=== PATIENT | female | born 1970 | race Caucasian/White ===

== ENCOUNTER 2018-08-21 05:34 | Emergency (ER) | payer OTHER, SELFPAY ==
[2018-08-21 05:40] VITALS: BP 164/93; PULSE 68; RESP 14; TEMP 36.4; O2SAT 98
[2018-08-21] MEDS: MECLIZINE HCL 12.5 MG TABLET 25 MG PO (05:55)
[2018-08-21] MEDS: ONDANSETRON 4 MG/2 ML INJ IV (05:56)
[2018-08-21] MEDS: SODIUM CHLORIDE 0.9% 1,000 ML 1000 ML IV ×2 (05:56→07:15)
--- NOTE | 2018-08-21 06:03 | ED_ITS ---
HPI - Dizziness <Charbel Burton DO - Last Filed: 08/26/18 21:18> General Chief Complaint: Dizziness Stated Complaint: Dizzy, nausea, sweating Time Seen by Provider: 08/21/18 05:38 Source: patient and family Mode of arrival: ambulatory Limitations: no limitations History of Present Illness HPI Narrative: 48-year-old female nonsmoker with history of hypertension presents with a chief complaint of dizziness, weakness, chills and vomiting this morning. She went to bed feeling a bit queasy and woke up this morning vomiting and sweaty and now feels dizzy. She is more dizzy upon standing and looking of. She has improvement with sitting still. She denies recent trauma or head injury. She denies any recent upper respiratory complaints such as runny nose, sneezing, coughing or sore throat. She denies any chest pain or shortness of breath. She denies any abdominal pain. She denies blurred vision, trouble with speech or other focal neurologic problems. She is visiting locally with her and daughter, they are camping at a local camp area. She thinks she might have eaten some bad food last night. MD complaint: dizziness Onset (ago): hour(s) Timing: awoke with symptoms Description: room spinning History of similar episodes: No History of trauma: No Severity: moderate Relieving factors: remaining still Exacerbating factors: movement Related Data Previous Rx's Medication Instructions Recorded meclizine 25 mg PO TID PRN #14 tab 08/21/18 ondansetron 4 mg PO Q6-8H PRN #10 tab 08/21/18 Allergies Allergy/AdvReac Type Severity Reaction Status Date / Time No Known Drug Allergies Allergy Verified 08/21/18 05:41 Review of Systems <Charbel Burton DO - Last Filed: 08/26/18 21:18> Constitutional Reports chills, Denies fever(s), Denies lethargy and Reports weakness Eyes Denies change in vision, Denies eye discharge, Denies irritation and Denies loss of vision ENT Ears, Nose, Mouth, and Throat: Denies change in voice, Denies neck pain and D enies sore throat Cardiovascular Denies chest pain, Denies irregular heart rhythm, Denies lightheadedness, Denies palpitations, Denies dyspnea, Denies dyspnea on exertion and Denies orthopnea Respiratory Denies cough, Denies dyspnea, Denies dyspnea on exertion and Denies wheezing Gastrointestinal Gastrointestinal: Denies abdominal pain, Denies change in bowel habits, Denies diarrhea, Reports nausea and Reports vomiting Genitourinary Denies hematuria, Denies flank pain, Denies urinary incontinence and Denies urinary urgency Musculoskeletal Denies neck pain Integumentary/Breasts Denies pruritus, Denies erythema, Denies rash and Denies wounds Neurologic Denies confusion, Denies loss of vision and Reports weakness Psychiatric Denies anxiety, Denies confusion, Denies depression, Denies homicidal ideation and Denies suicidal ideation Endocrine Denies palpitations Hematologic/Lymphatic Denies easy bruising Allergic/Immunologic Denies wheezing PFSH <Charbel Burton DO - Last Filed: 08/26/18 21:18> Medical History (Updated 08/21/18 @ 08:09 by Rukhsana Lancaster DO) HTN (hypertension) (Acute) Social History Smoking Status: Never smoker Social History Smoking Status: Never smoker Exam <Charbel Burton DO - Last Filed: 08/26/18 21:18> Narrative Exam Narrative: GENERAL: 48-year-old female appears stated age, obviously uncomfortable, sitting very still and any movement of her head causes dizziness HEAD: Atraumatic. Normocephalic. No temporal or scalp tenderness. EYES: Pupils equal round and reactive. Extraocular motions intact. No scleral icterus. No injection or drainage. ENT: Nose without bleeding, purulent drainage or septal hematoma. Throat without erythema, tonsillar hypertrophy or exudate. Uvula midline. Airway patent. NECK: Trachea midline. No JVD or lymphadenopathy. Supple, nontender, no meningeal signs. CARDIOVASCULAR: Regular rate and rhythm without murmurs, gallops, or rubs. RESPIRATORY: Clear to auscultation. Breath sounds equal bilaterally. No wheezes, rales, or rhonchi. GASTROINTESTINAL: Abdomen soft, non-tender, nondistended. No hepato- splenomegaly, or palpable masses. No guarding. EXTREMITIES: No clubbing, cyanosis, or edema. No joint tenderness, effusion, or edema noted. BACK: Nontender without deformity or crepitance. No flank tenderness. NEURO: AOx3. SKIN: No rash or erythema. Initial Vital Signs Initial Vital Signs: Vital Signs Temperature 97.6 F 08/21/18 05:40 Pulse Rate 68 08/21/18 05:40 Respiratory Rate 14 08/21/18 05:40 Blood Pressure 164/93 H 08/21/18 05:40 Pulse Oximetry 98 08/21/18 05:40 <Rukhsana Lancaster DO - Last Filed: 08/21/18 08:48> Initial Vital Signs Initial Vital Signs: Vital Signs Temperature 97.6 F 08/21/18 05:40 Pulse Rate 68 08/21/18 05:40 Respiratory Rate 14 08/21/18 05:40 Blood Pressure 164/93 H 08/21/18 05:40 Pulse Oximetry 98 08/21/18 05:40 Course <Charbel Burton DO - Last Filed: 08/26/18 21:18> Orders Ordered: Discontinued Medications Sodium Chloride (Normal Saline 0.9%) 1,000 mls @ 1,000 mls/hr IV BOLUS ONE Stop: 08/21/18 06:48 Last Infusion: 08/21/18 07:13 Dose: 1,000 mls/hr Admin: 08/21/18 05:56 Dose: 1,000 mls/hr Sodium Chloride (Normal Saline 0.9%) 1,000 mls @ 1,000 mls/hr IV BOLUS ONE Stop: 08/21/18 07:54 Last Infusion: 08/21/18 08:08 Dose: 0 mls/hr Admin: 08/21/18 07:15 Dose: 1,000 mls/hr Meclizine HCl (Antivert) 25 mg PO NOW ONE Stop: 08/21/18 05:50 Last Admin: 08/21/18 05:55 Dose: 25 mg Ondansetron HCl (Zofran) 4 mg IV Q4HR PRN PRN Reason: Nausea And Vomiting Last Admin: 08/21/18 05:56 Dose: 4 mg Vital Signs - 8 hr 08/21/18 05:40 08/21/18 06:14 08/21/18 08:31 Temperature 97.6 F Pulse Rate 68 70 84 Respiratory Rate 14 15 14 Blood Pressure 164/93 H Blood Pressure [Right Arm] 141/83 H 144/80 H Pulse Oximetry 98 99 100 07/06/19 08:42 Temperature Pulse Rate 77 Respiratory Rate 18 Blood Pressure 138/80 Blood Pressure [Right Arm] Pulse Oximetry 100 <Rukhsana Lancaster DO - Last Filed: 08/21/18 08:48> Orders Ordered: Discontinued Medications Sodium Chloride (Normal Saline 0.9%) 1,000 mls @ 1,000 mls/hr IV BOLUS ONE Stop: 08/21/18 06:48 Last Infusion: 08/21/18 07:13 Dose: 1,000 mls/hr Admin: 08/21/18 05:56 Dose: 1,000 mls/hr Sodium Chloride (Normal Saline 0.9%) 1,000 mls @ 1,000 mls/hr IV BOLUS ONE Stop: 08/21/18 07:54 Last Infusion: 08/21/18 08:08 Dose: 0 mls/hr Admin: 08/21/18 07:15 Dose: 1,000 mls/hr Meclizine HCl (Antivert) 25 mg PO NOW ONE Stop: 08/21/18 05:50 Last Admin: 08/21/18 05:55 Dose: 25 mg Ondansetron HCl (Zofran) 4 mg IV Q4HR PRN PRN Reason: Nausea And Vomiting Last Admin: 08/21/18 05:56 Dose: 4 mg Vital Signs - 8 hr 08/21/18 05:40 08/21/18 06:14 08/21/18 08:31 Temperature 97.6 F Pulse Rate 68 70 84 Respiratory Rate 14 15 14 Blood Pressure 164/93 H Blood Pressure [Right Arm] 141/83 H 144/80 H Pulse Oximetry 98 99 100 08/21/18 08:42 Temperature Pulse Rate 77 Respiratory Rate 18 Blood Pressure 138/80 Blood Pressure [Right Arm] Pulse Oximetry 100 MDM - Dizziness <Charbel Burton DO - Last Filed: 08/26/18 21:18> Lab Data Result diagrams: 08/21/18 06:09 08/21/18 06:09 Lab Results 08/21/18 08/21/18 08/21/18 Range/Units 04:45 06:09 06:09 WBC 10.0 (4.5-11.0) X10^3/uL RBC 5.02 (4.0-5.2) X10^6/uL Hgb 13.7 (12.0-16.0) g/dL Hct 41.3 (36-46) % MCV 82.2 (80-100) fL MCH 27.2 (26-34) PG MCHC 33.1 (30-36) % RDW 13.5 (11.6-14.8) % Plt Count 381 (150-400) X10^3/uL Neut % (Auto) 76.3 H (50-75) % Lymph % (Auto) 17.4 L (25-40) % [place] % (Auto) 4.2 (3-14) % Eos % (Auto) 0.9 L (2-4) % Baso % (Auto) 1.2 (0-2) % Neut # (Auto) 7700 H (9926-4740) /uL Lymph # (Auto) 1800 (3515-7882) /uL [place] # (Auto) 400 (0-900) /uL Eos # (Auto) 100 (0-450) /uL Baso # (Auto) 100 (0-100) /uL Sodium 138 (137-145) mmol/L Potassium 4.2 (3.4-5.1) mmol/L Chloride 105 (98-107) mmol/L Carbon Dioxide 25 (22-32) mmol/L BUN 20 H (7-17) mg/dL Creatinine 0.60 (0.52-1.04) mg/dL Estimated GFR > 60.0 (>60) mL/min BUN/Creatinine Ratio 33.3 H (6-22) Glucose 111 H (70-100) mg/dL Calcium 8.9 (8.4-10.2) mg/dL Troponin I < 0.012 (0.01-0.034) ng/mL Urine RBC 1-5/hpf (0-5/HPF) Urine WBC None seen (0-5/HPF) Ur Squamous Epith Cells 1-5 /hpf (0-5/HPF) Urine Bacteria Few (2-10) H (None) Ur Culture Indicated? Cult not indicated Urine Dip Bedside Urine Glucose Negative Bedside Urine Bilirubin - Negative Bedside Urine Ketone - Negative Urine Specific Abbott 1.030 Bedside Urine Occult Blood ++ Bedside Urine pH 5.5 Bedside Urine Protein - Negative Bedside Urine Urobilinogen +/- 1mg Bedside Urine Nitrite - Negative Bedside Urine Leukocytes - Negative Esterase ECG Data Attestation: I personally reviewed and interpreted this ECG as follows: Prior ECG tracings: not available for review Interpretation: EKG is normal sinus rhythm rate [78] and free of any signs of ischemia or ectopy. No ST segmental elevation or depression. No T wave inversions <Rukhsana Lancaster DO - Last Filed: 08/21/18 08:48> Lab Data Attestation: I reviewed the patient's lab results. Lab Results 08/21/18 08/21/18 08/21/18 Range/Units 04:45 06:09 06:09 WBC 10.0 (4.5-11.0) X10^3/uL RBC 5.02 (4.0-5.2) X10^6/uL Hgb 13.7 (12.0-16.0) g/dL Hct 41.3 (36-46) % MCV 82.2 (80-100) fL MCH 27.2 (26-34) PG MCHC 33.1 (30-36) % RDW 13.5 (11.6-14.8) % Plt Count 381 (150-400) X10^3/uL Neut % (Auto) 76.3 H (50-75) % Lymph % (Auto) 17.4 L (25-40) % [place] % (Auto) 4.2 (3-14) % Eos % (Auto) 0.9 L (2-4) % Baso % (Auto) 1.2 (0-2) % Neut # (Auto) 7700 H (7713-9744) /uL Lymph # (Auto) 1800 (9657-1206) /uL [place] # (Auto) 400 (0-900) /uL Eos # (Auto) 100 (0-450) /uL Baso # (Auto) 100 (0-100) /uL Sodium 138 (137-145) mmol/L Potassium 4.2 (3.4-5.1) mmol/L Chloride 105 (98-107) mmol/L Carbon Dioxide 25 (22-32) mmol/L BUN 20 H (7-17) mg/dL Creatinine 0.60 (0.52-1.04) mg/dL Estimated GFR > 60.0 (>60) mL/min BUN/Creatinine Ratio 33.3 H (6-22) Glucose 111 H (70-100) mg/dL Calcium 8.9 (8.4-10.2) mg/dL Troponin I < 0.012 (0.01-0.034) ng/mL Urine RBC 1-5/hpf (0-5/HPF) Urine WBC None seen (0-5/HPF) Ur Squamous Epith Cells 1-5 /hpf (0-5/HPF) Urine Bacteria Few (2-10) H (None) Ur Culture Indicated? Cult not indicated Urine Dip Bedside Urine Glucose Negative Bedside Urine Bilirubin - Negative Bedside Urine Ketone - Negative Urine Specific Abbott 1.030 Bedside Urine Occult Blood ++ Bedside Urine pH 5.5 Bedside Urine Protein - Negative Bedside Urine Urobilinogen +/- 1mg Bedside Urine Nitrite - Negative Bedside Urine Leukocytes - Negative Esterase Imaging Data CT scan - head: Radiologist's impression: PROCEDURE: CT HEAD/BRAIN WO CON INDICATIONS: dizziness, no injury TECHNIQUE: Noncontrast 4.5 mm thick angled axial sections acquired from the foramen magnum to the vertex, with coronal and sagittal reformats. For radiation dose reduction, the following was used: automated exposure control, adjustment of mA and/or kV according to patient size. COMPARISON: None. FINDINGS: Image quality: Excellent. CSF spaces: Basal cisterns are patent. No extra-axial fluid collections. Ventricles are normal in size and shape. Brain: No midline shift. No intracranial masses or hemorrhage. Viramontes-white matter interface is normal. Skull and face: Calvarium and visualized facial bones are intact, without suspicious lesions. Sinuses: Visualized sinuses and mastoids are clear. IMPRESSION: Negative head CT. No acute intracranial hemorrhage. Dictated by: Adiel Jarrett M.D. on 08/21/2018 at 7:08 [facility] Narrative Medical decision making narrative: PATIENT SIGNED OUT TO ME BY DR. BURTON I HAVE DONE INDEPENDENT EXAM AND SEEN EVALUATED PATIENT MYSELF. She has now had a CT she is able sit upright keep eyes open overall she states she is feeling much better and Medicine has likely kicked in. Discharge Plan Departure Patient Disposition: Home Clinical Impression: Benign paroxysmal positional vertigo Qualifiers: Laterality: unspecified laterality Qualified Code(s): H81.10 - Benign paroxysmal vertigo, unspecified ear Discharge Date/Time: 08/21/18 08:43 Interventions: ED Discharge Assessment Last Done: 08/21/18 08:42 Instructions: DI for Vertigo Activity Restrictions/Additional Instructions: *You have been diagnosed with vertigo *What to do: This should get better for you. Recommend resting *Continue to take medications as directed meclizine 25 mg every 8 hours if needed for dizziness Zofran 4 mg every 6-8 hours if needed for nausea or vomiting *Follow up with your primary care provider in 2-3 days *Return to ER if you should have worsening dizziness weakness difficulty speaking facial drooping or any new, worsening or concerning symptoms Prescriptions: New meclizine 25 mg tablet 25 mg PO TID PRN (Reason: dizziness) Qty: 14 RF: 0 ondansetron 4 mg tablet,disintegrating 4 mg PO Q6-8H PRN (Reason: nausea and vomiting) Qty: 10 RF: 0
[2018-08-21 06:14] VITALS: BP 141/83; PULSE 70; RESP 15; O2SAT 99
[2018-08-21 06:15] LABS: Add Manual Diff / Slide Review NO; Basophils Absolute Auto 100 /uL (0-100); Basophils Percent Auto 1.2 % (0-2); Eosinophils Absolute Auto 100 /uL (0-450); Eosinophils Percent Auto 0.9 % (2-4); Hematocrit 41.3 % (36-46); Hemoglobin 13.7 g/dL (12.0-16.0); Lymphocytes Absolute Auto 1800 /uL (1100-4500); Lymphocytes Percent Auto 17.4 % (25-40); Mean Corpuscular HGB Conc 33.1 % (30-36); Mean Corpuscular Hemoglobin 27.2 PG (26-34); Mean Corpuscular Volume 82.2 fL (80-100); Monocytes Absolute Auto 400 /uL (0-900); Monocytes Percent Auto 4.2 % (3-14); Neutrophils Absolute Auto 7700 /uL (1500-7000); Neutrophils Percent Auto 76.3 % (50-75); Platelet Count 381 X10^3/uL (150-400); Red Blood Cell Count 5.02 X10^6/uL (4.0-5.2); Red Cell Distribution Width 13.5 % (11.6-14.8)
[2018-08-21 06:22] LABS: BUN Creatinine Ratio 33.3 (6-22); Blood Urea Nitrogen 20 mg/dL (7-17); Calcium 8.9 mg/dL (8.4-10.2); Carbon Dioxide 25 mmol/L (22-32); Chloride 105 mmol/L (98-107); Estimated Glomerular Filt Rate > 60.0 mL/min (>60); Glucose 111 mg/dL (70-100); HEMOLYSIS 43 (0-50); Potassium 4.2 mmol/L (3.4-5.1); Sodium 138 mmol/L (137-145)
[2018-08-21 06:34] LABS: Troponin I < 0.012 ng/mL (0.01-0.034)
[2018-08-21 06:55] LABS: WBC Urine None Seen (0-5/HPF)
--- NOTE | 2018-08-21 06:55 | DI.CT.S_ITS ---
PROCEDURE: CT HEAD/BRAIN WO CON INDICATIONS: dizziness, no injury TECHNIQUE: Noncontrast 4.5 mm thick angled axial sections acquired from the foramen magnum to the vertex, with coronal and sagittal reformats. For radiation dose reduction, the following was used: automated exposure control, adjustment of mA and/or kV according to patient size. COMPARISON: None. FINDINGS: Image quality: Excellent. CSF spaces: Basal cisterns are patent. No extra-axial fluid collections. Ventricles are normal in size and shape. Brain: No midline shift. No intracranial masses or hemorrhage. Viramontes-white matter interface is normal. Skull and face: Calvarium and visualized facial bones are intact, without suspicious lesions. Sinuses: Visualized sinuses and mastoids are clear. IMPRESSION: Negative head CT. No acute intracranial hemorrhage. Dictated by: Adiel Jarrett M.D. on 08/21/2018 at 7:08 Approved by: Adiel Jarrett M.D. on 08/21/2018 at 7:10
[2018-08-21 07:06] LABS: Bacteria Urine Few (2-10); Culture Indicated Urine Cult Not Indicated; RBC Urine 1-5/HPF (0-5/HPF); Squamous Epithelial Cell Urine 1-5 /HPF (0-5/HPF)
[2018-08-21 08:31] VITALS: BP 144/80; PULSE 84; RESP 14; O2SAT 100
[2018-08-21 08:42] VITALS: BP 138/80; PULSE 77; RESP 18; O2SAT 100
== END 2018-08-21 08:43 | disposition home or self-care (01) ==
PROVIDERS: Emergency Medicine; Emergency Provider Emergency Medicine
DX: H81.10 Benign paroxysmal vertigo, unspecified ear (principal); R53.1 Weakness
CPT/HCPCS: 36591; 70450; 80048; 81003; 81015; 84484; 85025; 93005; 96361; 96374; 99283; 99285; J2405